=== PATIENT | male | born 1965 | race Caucasian/White ===

== ENCOUNTER 2020-04-17 06:27 | Inpatient (IN) | payer BC, SELFPAY ==
[~2020-04-17] VITALS: Ht 170.2 cm; Wt 112.9 kg
[~2020-04-17 06:27] MED LIST: FLO4 PO; KETOROLAC TROME10 MG PO; LEVAQUIN500 MG PO; NOR10T PO
[2020-04-17 06:31] VITALS: Ht 170.2 cm; Wt 112.9 kg
[2020-04-17 09:21] LABS: BASOPHIL % 0.2 % (0.2-1.5); CALCIUM 8.5 mg/dL (8.5-10.1); CARBON DIOXIDE 27.6 mmol/L (21-32); CHLORIDE SERUM 98 mmol/L (98-107); CREATININE SERUM 1.2 mg/dL (0.7-1.3); GFR1 > 60 mL/min; GLUCOSE SERUM 105 mg/dL (74-106); PLATELET COUNT 140 x10^3mcL (152-348); POTASSIUM SERUM 4.4 mmol/L (3.5-5.1); RED CELL DISTRIBUTION WIDTH 14.1 % (12.1-16.2); SODIUM SERUM 135 mmol/L (136-145)
[2020-04-17 09:25] LABS: ALBUMIN 3.2 g/dL (3.4-5.0); ALKALINE PHOSPHATASE 104 U/L (46-116); ALT/SGPT 146 U/L (16-63); AST/SGOT 109 U/L (15-37); BILIRUBIN TOTAL 0.46 mg/dL (0.20-1.00); C REACTIVE PROTEIN 7.3 mg/dL (<=0.9); LACTIC DEHYDROGENASE (LDH) 319 U/L (100-190); TOTAL PROTEIN, SERUM 8.1 g/dL (6.4-8.2)
[2020-04-17 14:15] VITALS: BP 114/74
[2020-04-18 04:39] VITALS: BP 118/85
[2020-04-18 07:12] LABS: PLATELET COUNT 144 x10^3mcL (152-348); RED CELL DISTRIBUTION WIDTH 14.1 % (12.1-16.2)
[2020-04-18 07:20] LABS: BILIRUBIN DIRECT 0.14 mg/dL (0.0-0.2); BILIRUBIN TOTAL 0.34 mg/dL (0.20-1.00); TOTAL PROTEIN, SERUM 7.7 g/dL (6.4-8.2)
[2020-04-18 08:04] LABS: CALCIUM 8.4 mg/dL (8.5-10.1); CARBON DIOXIDE 27.2 mmol/L (21-32); CHLORIDE SERUM 100 mmol/L (98-107); CREATININE SERUM 1.1 mg/dL (0.7-1.3); GFR1 > 60 mL/min; GLUCOSE SERUM 121 mg/dL (74-106); POTASSIUM SERUM 4.7 mmol/L (3.5-5.1); SODIUM SERUM 137 mmol/L (136-145)
[2020-04-18 09:11] VITALS: BP 131/93
[2020-04-18 10:32] LABS: MONOCYTE 4 % (0-7); SEGMENTED NEUTROPHILS 54 % (37-75); rbc morphology (normal/abnorm) NORMAL (NORMAL)
[2020-04-18 12:57] VITALS: BP 147/89
[2020-04-18 16:58] VITALS: BP 147/89
[2020-04-18 22:27] VITALS: BP 115/75
[2020-04-19 06:41] VITALS: BP 119/70
[2020-04-19 08:11] LABS: CALCIUM 8.5 mg/dL (8.5-10.1); CARBON DIOXIDE 27.6 mmol/L (21-32); CHLORIDE SERUM 104 mmol/L (98-107); CREATININE SERUM 1.2 mg/dL (0.7-1.3); GFR1 > 60 mL/min; GLUCOSE SERUM 111 mg/dL (74-106); POTASSIUM SERUM 4.8 mmol/L (3.5-5.1); SODIUM SERUM 140 mmol/L (136-145)
[2020-04-19 08:39] VITALS: BP 122/82
[2020-04-19 09:29] LABS: BASOPHIL % 0.3 % (0.2-1.5); PLATELET COUNT 161 x10^3mcL (152-348)
[2020-04-19 11:53] VITALS: BP 122/80
[2020-04-19 12:03] LABS: BILIRUBIN DIRECT 0.17 mg/dL (0.0-0.2); BILIRUBIN TOTAL 0.3 mg/dL (0.20-1.00); TOTAL PROTEIN, SERUM 6.7 g/dL (6.4-8.2)
[2020-04-19 12:05] LABS: ALBUMIN 3.1 g/dL (3.4-5.0)
[2020-04-19 16:31] VITALS: BP 113/75
[2020-04-19 20:54] VITALS: BP 114/70
[2020-04-20 05:27] VITALS: BP 118/78
[2020-04-20 08:45] VITALS: BP 123/95
[2020-04-20 09:16] LABS: BASOPHIL % 0.2 % (0.2-1.5); PLATELET COUNT 183 x10^3mcL (152-348); RED CELL DISTRIBUTION WIDTH 13.8 % (12.1-16.2)
[2020-04-20 09:52] LABS: CALCIUM 8.4 mg/dL (8.5-10.1); CARBON DIOXIDE 25.6 mmol/L (21-32); CHLORIDE SERUM 104 mmol/L (98-107); CREATININE SERUM 0.9 mg/dL (0.7-1.3); GFR1 > 60 mL/min; GLUCOSE SERUM 108 mg/dL (74-106); POTASSIUM SERUM 4.1 mmol/L (3.5-5.1); SODIUM SERUM 140 mmol/L (136-145)
[2020-04-20 10:07] LABS: BILIRUBIN DIRECT 0.17 mg/dL (0.0-0.2); BILIRUBIN TOTAL 0.3 mg/dL (0.20-1.00); TOTAL PROTEIN, SERUM 6.5 g/dL (6.4-8.2)
[2020-04-20 10:16] LABS: ALBUMIN 2.8 g/dL (3.4-5.0)
[2020-04-20 12:39] VITALS: BP 117/74
[2020-04-20 16:50] VITALS: BP 113/73
[2020-04-20 17:54] VITALS: BP 113/73
[2020-04-20 21:21] VITALS: BP 107/86
[2020-04-21 05:46] VITALS: BP 109/73
[2020-04-21 07:26] LABS: BASOPHIL % 0.2 % (0.2-1.5); PLATELET COUNT 203 x10^3mcL (152-348); RED CELL DISTRIBUTION WIDTH 13.4 % (12.1-16.2)
[2020-04-21 07:58] VITALS: BP 114/78
[2020-04-21 08:03] LABS: BILIRUBIN DIRECT 0.15 mg/dL (0.0-0.2); BILIRUBIN TOTAL 0.33 mg/dL (0.20-1.00)
[2020-04-21 08:13] LABS: C REACTIVE PROTEIN 2.8 mg/dL (<=0.9); CALCIUM 7.9 mg/dL (8.5-10.1); CARBON DIOXIDE 25.1 mmol/L (21-32); CHLORIDE SERUM 105 mmol/L (98-107); GFR1 > 60 mL/min; GLUCOSE SERUM 118 mg/dL (74-106); MAGNESIUM 2.1 mg/dL (1.8-2.4); SODIUM SERUM 141 mmol/L (136-145)
[2020-04-21 09:02] LABS: ALBUMIN 2.6 g/dL (3.4-5.0)
[2020-04-21 11:47] VITALS: BP 126/84
[2020-04-21 17:02] VITALS: BP 126/89
[2020-04-21 22:53] VITALS: BP 117/78
[2020-04-22 06:07] VITALS: BP 112/73
[2020-04-22 07:47] LABS: BASOPHIL % 0.2 % (0.2-1.5); PLATELET COUNT 218 x10^3mcL (152-348); RED CELL DISTRIBUTION WIDTH 13.7 % (12.1-16.2)
[2020-04-22 08:17] LABS: C REACTIVE PROTEIN 2.3 mg/dL (<=0.9); CALCIUM 8.3 mg/dL (8.5-10.1); CHLORIDE SERUM 104 mmol/L (98-107); CREATININE SERUM 0.8 mg/dL (0.7-1.3); GFR1 > 60 mL/min; GLUCOSE SERUM 113 mg/dL (74-106); POTASSIUM SERUM 4.2 mmol/L (3.5-5.1); SODIUM SERUM 140 mmol/L (136-145)
[2020-04-22 08:47] VITALS: BP 123/78
[2020-04-22 12:04] VITALS: BP 108/70
[2020-04-22 17:39] VITALS: BP 128/79
[2020-04-22 21:30] VITALS: BP 118/78
[2020-04-23 05:19] VITALS: BP 119/75
[2020-04-23 07:18] LABS: PLATELET COUNT 263 x10^3mcL (152-348); RED CELL DISTRIBUTION WIDTH 13.5 % (12.1-16.2)
[2020-04-23 07:21] LABS: CALCIUM 8.4 mg/dL (8.5-10.1); CARBON DIOXIDE 29.3 mmol/L (21-32); CHLORIDE SERUM 104 mmol/L (98-107); GFR1 > 60 mL/min; GLUCOSE SERUM 166 mg/dL (74-106); POTASSIUM SERUM 4.5 mmol/L (3.5-5.1); SODIUM SERUM 139 mmol/L (136-145)
[2020-04-23 07:54] VITALS: BP 124/90
[2020-04-23 11:21] VITALS: BP 124/74
[2020-04-23 13:13] LABS: MONOCYTE 9 % (0-7); SEGMENTED NEUTROPHILS 65 % (37-75); rbc morphology (normal/abnorm) NORMAL (NORMAL)
[2020-04-23 16:42] VITALS: BP 135/87
[2020-04-23 21:20] VITALS: BP 123/73
[2020-04-24 05:48] VITALS: BP 110/78
[2020-04-24 09:23] VITALS: BP 124/87
[2020-04-24 12:32] VITALS: BP 117/79
[2020-04-24] MEDS ORDERED: VENTOLIN H0.09 MG/A1 INH (13:29)
[2020-04-24] MEDS ORDERED: MUCINEX600 MG PO (13:30)
[2020-04-24] MEDS ORDERED: DECADRON4 MG PO (13:30)
== END 2020-04-24 15:20 | disposition home or self-care (01) | DRG 177 ==
LOC: ED 06:27 → DU 11:00
PROVIDERS: Emergency Medicine; Internal Medicine; ADMIT Family Medicine; ATTEND Family Medicine
PROC: XW033E5 Introduction of Remdesivir Anti-infective into Peripheral Vein, Percutaneous Approach, New Technology Group 5 (ICD-10-PCS; principal; 2020-04-17)
PROC: XW13325 Transfusion of Convalescent Plasma (Nonautologous) into Peripheral Vein, Percutaneous Approach, New Technology Group 5 (ICD-10-PCS; 2020-04-19)
DX: U07.1 COVID-19 (principal); J12.89 Other viral pneumonia; J96.01 Acute respiratory failure with hypoxia; E66.9 Obesity, unspecified; Z91.018 Allergy to other foods; Z87.442 Personal history of urinary calculi; Z80.42 Family history of malignant neoplasm of prostate; Z68.38 Body mass index [BMI] 38.0-38.9, adult; Z79.899 Other long term (current) drug therapy
CPT/HCPCS: 36600; 83880; 85378; 87804; G0378; J0456; J0696; J1100; J1650; J7030; J7050; J7060; U0003